=== PATIENT | female | born 1990 | race Caucasian/White ===

== ENCOUNTER 2019-01-05 14:06 | Emergency (ER) | payer SELFPAY, OTHER | END 2019-01-05 17:25 | disposition home or self-care (01) | LOC: FTE 14:06 | DX: S83.001A Unspecified subluxation of right patella, initial encounter (principal); X58.XXXA Exposure to other specified factors, initial encounter; Y92.9 Unspecified place or not applicable | CPT/HCPCS: 29505; 73564; 99283-25 ==